=== PATIENT | male | born 1970 | race Caucasian/White ===

== ENCOUNTER → 2022-03-01 | Day surgery (SDC) | payer MEDICAID ==
[~2022-03-01] VITALS: Ht 152.4 cm; Wt 74.4 kg
[~2022-03-01] MED LIST: BUPIVACAINE HCL 300 MG IMPLANT(XARACOLL) IL NR; BUPIVACAINE HCL XX SCH; BUPIVACAINE HCL/PF 0.5% (5MG/ML) 10ML ONE; CEFAZOLIN SODIUM 1000MG/VIAL ONE; DEXAMETHASONE 4MG/ML 1ML VIAL ONE; FENTANYL CITRATE/PF 50MCG/ML 2ML VIAL ONE; GLYCOPYRROLATE 0.2 MG/ML 2ML VIAL ONE; HYDR25TA PO; HYDROMORPHONE HCL/PF 2MG/ML CPJ IV PRN; HYDROMORPHONE HCL/PF 2MG/ML CPJ ONE; LABETALOL 5MG/ML SYR 20 MG/4 ML SYRINGE IV PRN; LACTATED RINGERS 1,000 ML IV SCH; LIDOCAINE HCL 1% 20ML VIAL (Pyxis) INJ ONE; LISI40TA13 PO; MEPERIDINE HCL/PF 25MG/ML CPJ IV PRN; MIDAZOLAM HCL 2 MG/2 ML VIAL ONE; NEOSTIGMINE METHYLSULFATE 1MG/ML 10 ML VIAL ONE; ONDANSETRON HCL 4MG/2ML INJ IV PRN; PROPOFOL 200MG/20ML VIAL IV ONE; SKIN ADHESIVE 0.7 GM EA TOP ONE; SUCCINYLCHOLINE CHLORIDE 200MG/10ML IV ONE
== END | disposition home or self-care (01) ==
LOC: OR 06:30
PROVIDERS: ATTEND Surgery
DX: K40.90 Unilateral inguinal hernia, without obstruction or gangrene, not specified as recurrent (principal); I10 Essential (primary) hypertension; E78.5 Hyperlipidemia, unspecified; Z79.899 Other long term (current) drug therapy; Z98.890 Other specified postprocedural states; Z20.822 Contact with and (suspected) exposure to COVID-19
CPT/HCPCS: 49505; 87426; C1781; C9803; J0330; J0690; J1100; J1170; J2250; J2704; J2710; J3010; J3490; C9089